=== PATIENT | female | born 1955 | race Asian ===

== ENCOUNTER 2021-10-04 22:31 | Emergency (ER) | payer OTHER ==
[~2021-10-04] VITALS: Ht 167.6 cm; Wt 86.4 kg
[2021-10-04] MEDS ORDERED: SERT-158 PO (22:42)
[2021-10-04] MEDS ORDERED: METF-1185 PO (22:42)
[2021-10-04] MEDS ORDERED: ATOR10TA84 PO (22:42)
[2021-10-04] MEDS ORDERED: ALLO-45 PO (22:42)
[2021-10-04] MEDS ORDERED: LOSA-382 PO (22:42)
[2021-10-04 23:30] LABS: BASOPHILS % (AUTO) 0.4 % (0.0-2.0); EOSINOPHILS % (AUTO) 0.4 % (1.0-6.0); HEMOGLOBIN 13.2 g/dL (12.0-16.0); LYMPHOCYTES # (AUTO) 2.1 K/uL (1.0-4.8); LYMPHOCYTES % (AUTO) 15.6 % (22.0-44.0); MEAN CORPUSCULAR HEMOGLOBIN 31.6 pg (26.0-34.0); MEAN CORPUSCULAR HGB CONC 33.7 G/dL (31.0-37.0); MEAN CORPUSCULAR VOLUME 94 fL (80-100); MONOCYTES # (AUTO) 0.7 K/uL (0.1-1.0); NEUTROPHILS # (AUTO) 10.8 K/uL (1.8-7.7); NEUTROPHILS % (AUTO) 78.6 % (40.0-70.0); PLATELET COUNT (AUTO) 363 K/uL (150-450); RED BLOOD CELL COUNT(AUTO) 4.16 MIL/uL (4.00-5.20); RED CELL DISTRIBUTION WIDTH 14.3 % (11.5-14.5)
[2021-10-04 23:38] LABS: CALCIUM, TOTAL 9.6 mg/dL (8.8-10.5); CREATININE 1.15 mg/dL (0.60-1.30); POTASSIUM 4.1 mmol/L (3.5-5.1)
[2021-10-04 23:52] LABS: ALBUMIN 3.7 g/dL (3.4-5.0); BILIRUBIN,TOTAL 0.6 mg/dL (0.1-1.0); TOTAL PROTEIN, SERUM 7.9 g/dL (6.4-8.2)
[2021-10-05 01:38] LABS: APPEARANCE,URINE CLEAR (CLEAR); BILIRUBIN,URINE NEGATIVE (NEGATIVE); GLUCOSE, URINE (UA) NEGATIVE (NEGATIVE); KETONES,URINE NEGATIVE (NEGATIVE); LEUKOCYTE ESTERASE ,URINE TRACE (NEGATIVE); NITRATE,URINE NEGATIVE (NEGATIVE); OCCULT BLOOD,URINE NEGATIVE (NEGATIVE); PH,URINE 5.5 (5.0-8.0); PROTEIN,URINE NEGATIVE (NEGATIVE); SPECIFIC GRAVITIY, URINE 1.005 (1.003-1.030); UROBILINOGEN,URINE <=1.0 mg/dL (<=1.0)
[2021-10-05 01:47] LABS: BACTERIA,URINE None Seen /HPF (None Seen); RBC,URINE None Seen /HPF (0-2); WBC,URINE 0-2 /HPF (0-5)
[2021-10-05] MEDS ORDERED: LIDOCAINE/PF 1% 2 ML VIAL IM ONE (04:00)
[2021-10-05] MEDS ORDERED: CefTRIAXone SODIUM 1 GM/VIAL IM ONE (04:00)
[2021-10-05 04:21] VITALS: BP 150/104
== END 2021-10-05 04:34 | disposition home or self-care (01) ==
LOC: EMS 22:39
DX: R10.33 Periumbilical pain (principal); K76.0 Fatty (change of) liver, not elsewhere classified; I10 Essential (primary) hypertension; E11.9 Type 2 diabetes mellitus without complications; Z79.84 Long term (current) use of oral hypoglycemic drugs; Z79.899 Other long term (current) drug therapy
CPT/HCPCS: 36415; 74176; 80053; 81001; 82962; 83690; 84484; 85025; 93005; 96372; 99285; J0696; J3490